=== PATIENT | male | born 1950 | race Caucasian/White ===

== ENCOUNTER 2017-02-16 11:11 | Emergency (ER) | payer OTHER, BC ==
[~2017-02-16] VITALS: Ht 175.3 cm; Wt 90.0 kg
[2017-02-16 11:14] VITALS: BP 168/88; PULSE 85; RESP 21; TEMP 97.7; O2SAT 98
--- NOTE | 2017-02-16 11:50 | PD ---
HPI Chief Complaint: Fall Time Seen by Provider: 11:43 Travel History International Travel<30 days: No Contact w/Intl Traveler<30days: No Traveled to known affect area: No History of Present Illness HPI 66-year-old male complains of right flank pain and right mid back pain. Patient fell off a six-foot ladder this morning. Patient states that he did not hit the head. Patient denies loss of consciousness. Patient denies any headache or neck pain. Patient states that he impacted on the right lank area and right mid back area. Patient states that he has sharp severe pain localized to right flank and right mid back area. Patient denies any pain radiation. Patient states that the pain is worse with movement. Patient denies any abdominal pain. Patient denies any focal weakness or numbness of the lower extremity. Patient denies any hematuria. PFSH Social History Tobacco Use: No Allergies-Medications (Allergen,Severity, Reaction): Coded Allergies: No Known Allergies (Unverified , 02/16/17) Reported Meds & Prescriptions Reported Meds & Active Scripts Active [place] (Hydrocodone-Acetaminophen) 5-325 mg Tab 1 Tab PO Q6H PRN Mobic (Meloxicam) 15 Mg Tab 15 Mg PO DAILY Review of Systems General / Constitutional: No: Fever Eyes: No: Visual changes HENT: No: Headaches Cardiovascular: No: Chest Pain or Discomfort Respiratory: No: Shortness of Breath Gastrointestinal: No: Abdominal Pain Genitourinary: No: Dysuria Musculoskeletal: No: Pain Skin: No Rash Neurologic: No: Weakness Psychiatric: No: Depression Endocrine: No: Polydipsia Hematologic/Lymphatic: No: Easy Bruising Physical Exam Narrative GENERAL: Well-nourished, well-developed patient. SKIN: Focused skin assessment warm/dry. HEAD: Normocephalic. EYES: No scleral icterus. No injection or drainage. NECK: Supple, trachea midline. No JVD or lymphadenopathy. CARDIOVASCULAR: Regular rate and rhythm without murmurs, gallops, or rubs. RESPIRATORY: Breath sounds equal bilaterally. No accessory muscle use. GASTROINTESTINAL: Abdomen soft, non-tender, nondistended. MUSCULOSKELETAL: No cyanosis, or edema. BACK: Patient has moderate tenderness on palpation right flank area and right sided upper lumbar area of the back. No midline tenderness of the lumbar spine. Negative straight leg raising. Neurologic exam normal. Data Data Last Documented VS Vital Signs Date Time Temp Pulse Resp B/P Pulse Ox O2 Delivery O2 Flow Rate FiO2 02/16/17 11:51 18 99 Room Air 02/16/17 11:14 97.7 85 168/88 Orders Complete Blood Count With Diff (02/16/17 11:46) Comprehensive Metabolic Panel (02/16/17 11:46) Prothrombin Time / Inr (Pt) (02/16/17 11:46) Act Partial Throm Time (Ptt) (02/16/17 11:46) Urinalysis - C+S If Indicated (02/16/17 11:46) Chest, Single Ap (02/16/17 11:46) Ct Abd/Pel W Iv Contrast(Rout) (02/16/17 11:46) Iv Access Insert/Monitor (02/16/17 11:46) Ecg Monitoring (02/16/17 11:46) Oximetry (02/16/17 11:46) Morphine Inj (Morphine Inj) (02/16/17 12:15) Ondansetron Inj (Zofran Inj) (02/16/17 12:15) Iohexol 350 Inj (Omnipaque 350 Inj) (02/16/17 14:17) Acetamin-Hydrocod 325-5 Mg ([place] 5-325 (02/16/17 16:00) Labs Laboratory Tests Test 02/16/17 02/16/17 12:00 13:55 White Blood Count 9.3 TH/MM3 Red Blood Count 5.10 MIL/MM3 Hemoglobin 15.7 GM/DL Hematocrit 45.3 % Mean Corpuscular Volume 88.7 FL Mean Corpuscular Hemoglobin 30.8 PG Mean Corpuscular Hemoglobin 34.7 % Concent Red Cell Distribution Width 13.8 % Platelet Count 169 TH/MM3 Mean Platelet Volume 9.1 FL Neutrophils (%) (Auto) 77.3 % Lymphocytes (%) (Auto) 14.0 % Monocytes (%) (Auto) 6.3 % Eosinophils (%) (Auto) 1.6 % Basophils (%) (Auto) 0.8 % Neutrophils # (Auto) 7.2 TH/MM3 Lymphocytes # (Auto) 1.3 TH/MM3 Monocytes # (Auto) 0.6 TH/MM3 Eosinophils # (Auto) 0.1 TH/MM3 Basophils # (Auto) 0.1 TH/MM3 CBC Comment DIFF FINAL Differential Comment Prothrombin Time 10.5 SEC Prothromb Time International 1.0 RATIO Ratio Activated Partial 23.1 SEC Thromboplast Time Sodium Level 136 MEQ/L Potassium Level 4.1 MEQ/L Chloride Level 106 MEQ/L Carbon Dioxide Level 20.6 MEQ/L Anion Gap 9 MEQ/L Blood Urea Nitrogen 16 MG/DL Creatinine 1.06 MG/DL Estimat Glomerular Filtration 70 ML/MIN Rate Random Glucose 114 MG/DL Calcium Level 8.5 MG/DL Total Bilirubin 0.6 MG/DL Aspartate Amino Transf 38 U/L (AST/SGOT) Alanine Aminotransferase 41 U/L (ALT/SGPT) Alkaline Phosphatase 68 U/L Total Protein 7.1 GM/DL Albumin 3.8 GM/DL Urine Color YELLOW Urine Turbidity CLEAR Urine pH 5.0 Urine Specific [place] 1.020 Urine Protein NEG mg/dL Urine Glucose (UA) NEG mg/dL Urine Ketones TRACE mg/dL Urine Occult Blood SMALL Urine Nitrite NEG Urine Bilirubin NEG Urine Urobilinogen LESS THAN 2.0 MG/DL Urine Leukocyte Esterase NEG Urine RBC 15 /hpf Urine WBC 2 /hpf Urine Mucus FEW /lpf Microscopic Urinalysis Comment CULT NOT INDICATED MDM Medical Decision Making Medical Screen Exam Complete: Yes Emergency Medical Condition: Yes Interpretation(s) Last Impressions Chest X-Ray 02/16/17 1146 Signed Impressions: Service Date/Time: Thursday, February 16, 2017 11:55 - CONCLUSION: No acute cardiopulmonary process. There is a 0.7 cm area of foreign material seen over the lower lateral right chest. Richard Musa MD [address] scan abdomen pelvis shows fracture right transverse process of L1 and L3 and L4. CMP within normal limit. UA negative. Differential Diagnosis Differential diagnosis including contusion, rib fracture, kidney contusion, fracture kidney, liver laceration Narrative Course 66-year-old male with right flank pain. Status post fall off six-foot ladder. Diagnosis Primary Impression: Fracture of spinous process of lumbar vertebra Qualified Code: S32.009A - Fracture of spinous process of lumbar vertebra, closed, initial encounter Patient Instructions: General Instructions Additional Instructions: Take medications as directed for pain. Follow-up with personal physician and orthopedist. Return if worse. Med/Other Pt SpecificInfo: Prescription(s) given Scripts Hydrocodone-Acetaminophen ([place])5-325 mg Tab1 Tab PO Q6H PRN (PAIN) #30 TAB Prov:Nikunj Easton MD 02/16/17 Meloxicam (Mobic)15 Mg Tab15 Mg PO DAILY #20 TAB Prov:Nikunj Easton MD 02/16/17 Disposition: 01 DISCHARGE HOME Condition: Stable Nikunj Easton MD Feb 16, 2017 11:50
[2017-02-16 11:51] VITALS: RESP 18; O2SAT 99
[2017-02-16] MEDS ORDERED: ONDANSETRON HCL 4 MG/2 ML VIAL IV PUSH ONE (12:15)
[2017-02-16] MEDS ORDERED: MORPHINE SULFATE 4 MG/ML INJ IV PUSH ONE (12:15)
[2017-02-16 12:20] LABS: APTT (PATIENT) 23.1 SEC (24.3-30.1); AUTOMATED NEUTROPHIL # 7.2 TH/MM3 (1.8-7.7); BASOPHIL # 0.1 TH/MM3 (0-0.2); BASOPHIL % 0.8 % (0.0-2.0); EOSINOPHIL # 0.1 TH/MM3 (0-0.4); EOSINOPHIL % 1.6 % (0.0-4.0); HEMATOCRIT 45.3 % (39.0-51.0); HEMO FLAGS DIFF FINAL; LYMPHOCYTE # 1.3 TH/MM3 (1.0-4.8); MEAN CELL VOLUME 88.7 FL (80.0-100.0); MEAN CORPUSCULAR HEMOGLOBIN 30.8 PG (27.0-34.0); MEAN CORPUSCULAR HGB CONC 34.7 % (32.0-36.0); MONO % 6.3 % (0.0-8.0); NEUT % 77.3 % (16.0-70.0); PLATELET COUNT 169 TH/MM3 (150-450); PROTHROMBIN TIME - PATIENT 10.5 SEC (9.8-11.6); RED CELL DISTRIBUTION WIDTH 13.8 % (11.6-17.2); WHITE BLOOD COUNT 9.3 TH/MM3 (4.0-11.0)
[2017-02-16 12:30] LABS: ALT (GPT) 41 U/L (12-78)
[2017-02-16 12:32] LABS: ALKALINE PHOSPHATASE 68 U/L (45-117); TOTAL BILIRUBIN ADULT 0.6 MG/DL (0.2-1.0)
--- NOTE | 2017-02-16 12:39 | RADRPT ---
EXAM DATE/TIME: 02/16/2017 11:55 [facility] COMPARISON: No previous studies available for comparison. INDICATIONS : Right sided chest pain after fall. MEDICAL HISTORY : None. SURGICAL HISTORY : None. ENCOUNTER: Initial ACUITY: 1 day PAIN SCORE: 10/10 LOCATION: Right lower chest FINDINGS: A single view of the chest demonstrates the lungs to be symmetrically aerated without evidence of mas s, infiltrate or effusion. The cardiomediastinal contours are unremarkable. Osseous structures are intact. There is a 0.7 cm area of foreign material seen lateral to the lower right ribs overlying the soft tissues. CONCLUSION: No acute cardiopulmonary process. There is a 0.7 cm area of foreign material seen over the lower late ral right chest. Richard Musa MD on February 16, 2017 at 12:34 Board Certified Radiologist. This report was verified electronically.
[2017-02-16 12:41] LABS: ANION GAP 9 MEQ/L (5-15); AST (GOT) 38 U/L (15-37); BICARBONATE 20.6 MEQ/L (21.0-32.0); BLOOD UREA NITROGEN 16 MG/DL (7-18); CHLORIDE 106 MEQ/L (98-107); GLOMERULAR FILTRATION RATE 70 ML/MIN (>89); POTASSIUM 4.1 MEQ/L (3.5-5.1); SODIUM (NA) 136 MEQ/L (136-145)
[2017-02-16 14:14] LABS: BLOOD, URINE SMALL (NEG); COMMENT (UR) CULT NOT INDICATED; CULTURE IF INDICATED CULT NOT INDICATED; GLUCOSE,URINE NEG (NEG); KETONE, URINE TRACE mg/dL (NEG); MUCUS URINE FEW /lpf (OCC); NITRITE,URINE NEG (NEG); URINE COLOR YELLOW (YELLW/STRAW)
[2017-02-16] MEDS ORDERED: IOHEXOL 350 MG/ML 10 ML VIAL (for RAD DIAG) IV ONE (14:17)
--- NOTE | 2017-02-16 14:38 | RADRPT ---
EXAM DATE/TIME: 02/16/2017 14:15 [place] Corrected on: February 16, 2017; [facility] COMPARISON: No previous studies available for comparison. INDICATIONS : Right flank pain status post fall. IV CONTRAST: 81 cc Omnipaque 350 (iohexol) IV ORAL CONTRAST: No oral contrast ingested. RADIATION DOSE: 16.26 CTDIvol (mGy) MEDICAL HISTORY : None SURGICAL HISTORY : None. ENCOUNTER: Initial ACUITY: 1 day PAIN SCALE: 6/10 LOCATION: Right flank TECHNIQUE: Volumetric scanning of the abdomen and pelvis was performed. Using automated exposure control and ad justment of the mA and/or kV according to patient size, radiation dose was kept as low as reasonably achievable to obtain optimal diagnostic quality images. FINDINGS: LOWER LUNGS: The visualized lower lungs are clear. LIVER: Homogeneous density without lesion. There is no dilation of the biliary tree. No calcified gallston es. SPLEEN: Normal size without lesion. PANCREAS: Within normal limits. KIDNEYS: Normal in size and shape. There is no mass, stone or hydronephrosis. ADRENAL GLANDS: Within normal limits. VASCULAR: There is no aortic aneurysm. BOWEL/MESENTERY: 2 a cyst of the descending and sigmoid colon. No inflammatory changes.. There is no free intraperito helen air or fluid. ABDOMINAL WALL: Within normal limits. RETROPERITONEUM: There is no lymphadenopathy. BLADDER: No wall thickening or mass. REPRODUCTIVE: Within normal limits. INGUINAL: There is no lymphadenopathy or hernia. MUSCULOSKELETAL: Soft tissue contusion right flank and right buttock. Fractures of the right transverse processes at L 1, L3 and L4 CONCLUSION: 1. Diverticulosis without diverticulitis. 2. Soft tissue contusion right flank and right buttock 3. Fractures of the right transverse processes of L1, L3 and L4. Laurent Galo MD on February 16, 2017 at 14:27 Board Certified Radiologist. This report was verified electronically. Laurent Galo MD on February 16, 2017 at 14:41 Board Certified Radiologist. This report was verified electronically.
[2017-02-16] MEDS ORDERED: MOBI15TA PO (15:17)
[2017-02-16] MEDS ORDERED: NORC5TAB PO (15:17)
[2017-02-16] MEDS ORDERED: ACETAMINOPHEN/HYDROcodone 325 MG/5 MG TAB PO ONE (16:00)
== END 2017-02-16 16:07 | disposition home or self-care (01) ==
LOC: NEPD 11:11
DX: S32.019A Unspecified fracture of first lumbar vertebra, initial encounter for closed fracture (principal); S32.039A Unspecified fracture of third lumbar vertebra, initial encounter for closed fracture; S32.049A Unspecified fracture of fourth lumbar vertebra, initial encounter for closed fracture; R10.9 Unspecified abdominal pain; W11.XXXA Fall on and from ladder, initial encounter
CPT/HCPCS: 71010; 74177; 80053; 81001; 85025; 85610; 85730; 96374; 96375; 99285; J2270; J2405; Q9967